=== PATIENT | female | born 1945 | race Asian ===

== ENCOUNTER 2016-07-29 09:45 | Emergency (ER) | payer MEDICARE, MEDICAID ==
[~2016-07-29] VITALS: Ht 154.9 cm; Wt 58.4 kg
[~2016-07-29 09:45] MED LIST: ALBU8.5H3 INH; AMIO200T2 PO; AMLO2.5T78 PO; ATOR20TA38 PO; AZIT250T94 PO; CALC-134 PO; D-ME118S6 PO; DABI75CA2 PO; IBUP400T22 PO; ISOS30TA5 PO; METO-448 PO; MULT-761 PO; NIT4 SL; OMEG100011 PO; OSLT75C PO; PANT20TA3 PO; VITAMIN C; [UNRECOGNIZED DRUG - OTHER]
[2016-07-29 09:48] VITALS: Ht 154.9 cm; Wt 58.4 kg
[2016-07-29 11:03] LABS: URINE BLOOD (Dip) POC 3+ (NEGATIVE)
[2016-07-29] MEDS ORDERED: CEPHALEXIN 500 MG CAP PO ONE (11:16)
[2016-07-29] MEDS ORDERED: PHENAZOPYRIDINE 100 MG TAB PO ONE (11:16)
--- NOTE | 2016-07-29 11:53 | RADRPT ---
PROCEDURE: XR Chest. CLINICAL INDICATION: Cough. TECHNIQUE: Single frontal chest x-ray. COMPARISON: Chest radiograph 07/06/2015. FINDINGS: A left pacemaker is in place with leads overlie the right atrium and right ventricle. Left basilar atelectasis is again noted. The cardiomediastinal silhouette is unremarkable. No pneumothorax, pleural effusion or consolidation is seen. No acute osseous abnormality is noted. IMPRESSION: 1. Left basilar atelectasis. 2. Otherwise no acute cardiopulmonary abnormality. 3. Left-sided pacemaker. RPTAT: HH .Lola Seals MD, Date Time Electronically viewed and signed by .Lola Seals MD, on 07/29/2016 11:52 .N/
[2016-07-29] MEDS ORDERED: PHEN-538 PO (11:57)
[2016-07-29] MEDS ORDERED: CEPH-443 PO (11:57)
[2016-07-29] MEDS ORDERED: D-ME473S18 PO (11:57)
--- NOTE | 2016-07-29 11:59 | ERD ---
ER Documentation Chief Complaint Date/Time DATE: 07/29/16 TIME: 11:58 Chief Complaint cough x 3 weeks. dysuria HPI 71-year-old female presents with a cough for last 3 weeks. Is minimally productive. She denies any fevers measured. She denies any vomiting, abdominal pain, chest pain. She has additional complaint of some dysuria the slight amount of blood over the last week. She denies any flank pain or abdominal pain. ROS All systems reviewed and are negative except as per history of present illness. Medications Home Meds Active Scripts Dextromethorphan Hb-Promethazine Hcl (Promethazine DM Syrup) 473 Ml Syrup, 5 ML PO Q6H Y for COUGH, #4 OZ Prov:GENARO GARRETT MD 07/29/16 Phenazopyridine Hcl* (Pyridium*) 200 Mg Tab, 200 MG PO TID Y for URINARY PAIN, # 6 TAB Prov:GENARO GARRETT MD 07/29/16 Cephalexin* (Keflex*) 500 Mg Capsule, 500 MG PO QID for 5 Days, CAP Prov:GENARO GARRETT MD 07/29/16 Oseltamivir Phosphate* (Tamiflu*) 75 Mg Capsule, 75 MG PO BID for 5 Days, CAP Prov:GENARO GARRETT MD 07/06/15 Dextromethorphan Hb-Promethazine Hcl (Promethazine DM Syrup) 180 Ml Syrup, 5 ML PO Q6H Y for COUGH, #4 OZ Prov:GENARO GARRETT MD 07/06/15 Azithromycin* (Zithromax*) 250 Mg Tablet, 250 MG PO .AshutoshPACK DIRECTED, #6 TAB TAKE 500 MG (2 TABS) THE FIRST DAY THEN 250 MG (1 TAB) DAYS 2-5 Prov:GENARO GARRETT MD 07/06/15 Ibuprofen* (Motrin*) 400 Mg Tab, 400 MG PO Q6, #14 TAB Prov:GENARO GARRETT MD 07/06/15 Reported Medications Nitroglycerin* (Nitrostat*) 0.4 Mg Tab.subl, 0.4 MG SL Q5MIN Y for CHEST PAIN, BOTTLE 10/25/14 Calcium Carbonate/Vitamin D3 (Calcium + Vitamin D Tablet) 1 Tab Tablet, 1 TAB PO 10/25/14 Multivitamin (MULTI VITAMIN DAILY) 1 Each Tablet, 1 TAB PO DAILY, TAB 10/25/14 [place]-3 Fatty Acids/Fish Oil* (Fish Oil *) 1,000 Mg Capsule, 1200 MG PO DAILY, CAP 10/25/14 [Enery B12] No Conflict Check 10/25/14 [Vitamin C] No Conflict Check, 2 10/25/14 Albuterol Sulfate* (Proair HFA*) 8.5 Gm Hfa.aer.ad, 2 PUFF INH Q4H Y for WHEEZING AND SOB, INH 10/25/14 Amiodarone Hcl* (Amiodarone Hcl*) 200 Mg Tablet, 200 MG PO DAILY, TAB 10/25/14 Amlodipine Besylate* (Amlodipine Besylate*) 2.5 Mg Tablet, 2.5 MG PO DAILY, TAB 10/25/14 Pantoprazole* (Pantoprazole*) 20 Mg Tablet.dr, 40 MG PO DAILY, TAB 04/19/14 Dabigatran Etexilate Mesylate* (Pradaxa*) 75 Mg Cap, 150 MG PO BID, CAP 04/19/14 Metoprolol Tartrate* (Lopressor*) 25 Mg Tab, 25 MG PO BID, TAB 09/11/13 Atorvastatin Calcium* (Atorvastatin Calcium*) 20 Mg Tablet, 10 MG PO HS, TAB 09/11/13 Isosorbide Mononitrate* (Isosorbide Mononitrate*) 30 Mg Tab.er.24h, 30 MG PO DAILY, TAB 09/11/13 Allergies Allergies: Coded Allergies: No Known Drug Allergies (Verified Allergy, Mild, 07/29/16) PMhx/Soc History of Surgery: No Anesthesia Reaction: No Hx Neurological Disorder: No Hx Respiratory Disorders: No Hx Cardiac Disorders: No Hx Psychiatric Problems: No Hx Miscellaneous Medical Probl: No Hx Alcohol Use: No Hx Substance Use: No Hx Tobacco Use: No Smoking Status: Never smoker Physical Exam Vitals Vital Signs Date Time Temp Pulse Resp B/P Pulse Ox O2 Delivery O2 Flow Rate FiO2 07/29/16 09:48 98.1 72 18 158/77 99 Physical Exam Const: [] Alert, [id number], speak complete sentences Head: Atraumatic Eyes: Normal Conjunctiva ENT: Normal External Ears, Nose and Mouth. Neck: Full range of motion..~ No meningismus. Resp: Clear to auscultation bilaterally. No rales or wheezing appreciated Cardio: Regular rate and rhythm, no murmurs Abd: Soft, non tender, non distended. Normal bowel sounds Skin: No petechiae or rashes Back: No midline or flank tenderness Ext: No cyanosis, or edema Neur: Awake and alert Psych: Normal Mood and Affect Results 24 hrs Laboratory Tests Test 07/29/16 11:04 Bedside Urine pH (LAB) 6.0 Bedside Urine Protein (LAB) 2+ Bedside Urine Glucose (UA) Negative Bedside Urine Ketones (LAB) Negative Bedside Urine Blood 3+ Bedside Urine Nitrite (LAB) Negative Bedside Urine Leukocyte Esterase (L 3+ Current Medications Medications (Trade) Dose Ordered Sig/Flavia Route PRN Reason Start Time Stop Time Status Last Admin Dose Admin Cephalexin (Keflex) 500 mg ONCE ONCE PO 07/29/16 11:16 07/29/16 11:17 DC 07/29/16 11:26 Phenazopyridine HCl (Pyridium) 200 mg ONCE ONCE PO 07/29/16 11:16 07/29/16 11:17 DC 07/29/16 11:26 Procedures/MDM Urine shows leukocytes and hemoglobin. There is no nitrites or glucose. Chest X-ray 1V Interpreted by me: Soft Tissue: No acute abnormalities Bones: No acute abnormalities Mediastinum/Cardiac Silhouette/Lungs: [No acute abnormalities]. Impression- normal 1 view chest x-ray with pacemaker in place. Patient was given Keflex 500 mg by mouth and Pyridium 200 mg by mouth. Patient signs and symptoms of a URI in addition to signs of UTI. She will treated with Keflex and further observation at home. She will also be given Pyridium and Promethazine DM. The patient was stable with no new complaints during the ER course. Clinically, there is no current evidence to suggest meningitis, sepsis, acute abdomen, pneumonia, acute coronary syndrome, pulmonary embolism, or any other emergent condition appearing to require further evaluation or hospitalization. The patient should certainly return for any new or worsening symptoms per the aftercare instructions. They should otherwise follow-up with her primary care doctor for reevaluation this week. Departure Diagnosis: Primary Impression: UTI (urinary tract infection) Urinary tract infection type: acute cystitis Hematuria presence: without hematuria Qualified Code: N30.00 - Acute cystitis without hematuria Additional Impression: Cough Condition: Stable Patient Instructions: Acute Bronchitis, Understanding Urinary Tract Infections (UTIs) Additional Instructions: Urine shows infection today and we will treat for the. X-ray shows no abnormalities. Recheck for new or worsening symptoms with primary care doctor. GENARO GARRETT MD Jul 29, 2016 11:59
[2016-07-29 12:20] VITALS: BP 140/64; PULSE 63; RESP 18; TEMP 99
== END 2016-07-29 12:09 | disposition home or self-care (01) ==
LOC: FTE 09:45
DX: N30.00 Acute cystitis without hematuria (principal); Z79.01 Long term (current) use of anticoagulants
CPT/HCPCS: 71010; 81003

== ENCOUNTER 2016-09-12 14:18 | Emergency (ER) | payer MEDICARE, OTHER ==
[~2016-09-12] VITALS: Ht 152.4 cm; Wt 59.0 kg
[~2016-09-12 14:18] MED LIST changes: +CEPH-443 PO; +D-ME473S18 PO; +PHEN-538 PO
[2016-09-12 14:19] VITALS: Ht 152.4 cm; Wt 59.0 kg
--- NOTE | 2016-09-12 15:55 | ERD ---
ER Documentation Chief Complaint Date/Time DATE: 09/12/16 TIME: 15:53 Chief Complaint pt bib family cough x 2 wks, HPI Patient is a 71-year-old female with a past medical history of hypertension and pacemaker who presents to the ED with a dry cough for the last 2 weeks. She also complains of congestion and sore throat. Denies fever or chills. Denies sick contacts. Denies abdominal pain, nausea, vomiting or diarrhea. She has tried [id number] medications such as NyQuil, DayQuil and took 1 dose of Keflex that she had at home. Denies hemoptysis or night sweats. She states that this minimally helped with her symptoms. Denies leg pain or leg swelling. Denies chest pain, shortness of breath or difficulty breathing. Denies recent travel or recent surgeries. Denies headache, dizziness. Denies blurry vision. ROS All systems reviewed and are negative except as per history of present illness. Medications Home Meds Active Scripts Benzonatate* (Tessalon Perle*) 100 Mg Capsule, 100 MG PO Q8H Y for COUGH for 14 Days, CAP Prov:HARDIK CAMARGO PA-C 09/12/16 Azithromycin* (Zithromax*) 500 Mg Tablet, 500 MG PO DAILY for 3 Days, TAB Prov:HARDIK CAMARGO PA-C 09/12/16 Dextromethorphan Hb-Promethazine Hcl (Promethazine DM Syrup) 473 Ml Syrup, 5 ML PO Q6H Y for COUGH, #4 OZ Prov:GENARO GARRETT MD 07/29/16 Phenazopyridine Hcl* (Pyridium*) 200 Mg Tab, 200 MG PO TID Y for URINARY PAIN, # 6 TAB Prov:GENARO GARRETT MD 07/29/16 Cephalexin* (Keflex*) 500 Mg Capsule, 500 MG PO QID for 5 Days, CAP Prov:GENARO GARRETT MD 07/29/16 Oseltamivir Phosphate* (Tamiflu*) 75 Mg Capsule, 75 MG PO BID for 5 Days, CAP Prov:GENARO GARRETT MD 07/06/15 Dextromethorphan Hb-Promethazine Hcl (Promethazine DM Syrup) 180 Ml Syrup, 5 ML PO Q6H Y for COUGH, #4 OZ Prov:GENARO GARRETT MD 07/06/15 Azithromycin* (Zithromax*) 250 Mg Tablet, 250 MG PO .AshutoshPAISABELLA DIRECTED, #6 TAB TAKE 500 MG (2 TABS) THE FIRST DAY THEN 250 MG (1 TAB) DAYS 2-5 Prov:GENARO GARRETT MD 07/06/15 Ibuprofen* (Motrin*) 400 Mg Tab, 400 MG PO Q6, #14 TAB Prov:GENARO GARRETT MD 07/06/15 Reported Medications Nitroglycerin* (Nitrostat*) 0.4 Mg Tab.subl, 0.4 MG SL Q5MIN Y for CHEST PAIN, BOTTLE 10/25/14 Calcium Carbonate/Vitamin D3 (Calcium + Vitamin D Tablet) 1 Tab Tablet, 1 TAB PO 10/25/14 Multivitamin (MULTI VITAMIN DAILY) 1 Each Tablet, 1 TAB PO DAILY, TAB 10/25/14 [place]-3 Fatty Acids/Fish Oil* (Fish Oil *) 1,000 Mg Capsule, 1200 MG PO DAILY, CAP 10/25/14 [Enery B12] No Conflict Check 10/25/14 [Vitamin C] No Conflict Check, 2 10/25/14 Albuterol Sulfate* (Proair HFA*) 8.5 Gm Hfa.aer.ad, 2 PUFF INH Q4H Y for WHEEZING AND SOB, INH 10/25/14 Amiodarone Hcl* (Amiodarone Hcl*) 200 Mg Tablet, 200 MG PO DAILY, TAB 10/25/14 Amlodipine Besylate* (Amlodipine Besylate*) 2.5 Mg Tablet, 2.5 MG PO DAILY, TAB 10/25/14 Pantoprazole* (Pantoprazole*) 20 Mg Tablet.dr, 40 MG PO DAILY, TAB 04/19/14 Dabigatran Etexilate Mesylate* (Pradaxa*) 75 Mg Cap, 150 MG PO BID, CAP 04/19/14 Metoprolol Tartrate* (Lopressor*) 25 Mg Tab, 25 MG PO BID, TAB 09/11/13 Atorvastatin Calcium* (Atorvastatin Calcium*) 20 Mg Tablet, 10 MG PO HS, TAB 09/11/13 Isosorbide Mononitrate* (Isosorbide Mononitrate*) 30 Mg Tab.er.24h, 30 MG PO DAILY, TAB 09/11/13 Allergies Allergies: Coded Allergies: No Known Drug Allergies (Verified Allergy, Mild, 09/12/16) PMhx/Soc History of Surgery: Yes (pacemaker) Anesthesia Reaction: No Hx Neurological Disorder: No Hx Respiratory Disorders: No Hx Cardiac Disorders: Yes (htn) Hx Psychiatric Problems: No Hx Miscellaneous Medical Probl: No Hx Alcohol Use: No Hx Substance Use: No Hx Tobacco Use: No Smoking Status: Never smoker FmHx Family History: No coronary disease, No diabetes, No other Physical Exam Vitals Vital Signs Date Time Temp Pulse Resp B/P Pulse Ox O2 Delivery O2 Flow Rate FiO2 09/12/16 14:19 97.8 66 20 186/77 98 Physical Exam GENERAL: Well-developed, well-nourished female. Appears in no acute distress. HEAD: Normocephalic, atraumatic. EYES: Pupils are equally reactive bilaterally. EOMs grossly intact. No conjunctival erythema. ENT: Moist mucous membranes. No uvula deviation. No kissing tonsils. No exudates. NECK: Supple. No lymphadenopathy or thyromegaly. No meningismus. negative kernig. negative brudinski. LUNG: Clear to auscultation bilaterally. No rhonchi, wheezing, rales or coarse breath sounds. HEART: Regular rate and rhythm. No murmurs, rubs or gallops. ABDOMEN: No scars, ecchymosis or rashes noted. Soft, nontender, and nondistended. Positive bowel sounds in all four quadrants. No rebound tenderness , no guarding. (-) McBurneys point tenderness. No CVA tenderness. BACK: No midline tenderness. Extremities: Equal pulses bilaterally. No peripheral clubbing, cyanosis or edema. No unilateral leg swelling. Negative Homans sign NEUROLOGIC: Alert and oriented. Moving all four extremities. 5/5 strength in all extremities. Normal speech. Steady gait. SKIN: Normal color. Warm and dry. No rashes or lesions. Capillary refill < 2 seconds Results 24 hrs Current Medications Medications (Trade) Dose Ordered Sig/Flavia Route PRN Reason Start Time Stop Time Status Last Admin Dose Admin Dexamethasone (Decadron) 10 mg ONCE ONCE IM 09/12/16 16:00 09/12/16 16:01 DC 09/12/16 16:56 Procedures/MDM ER COURSE: I kept the patient and/or family informed of laboratory and diagnostic imaging results throughout the emergency room course. IMAGING STUDIES EKG performed, read by DR GARRETT 71bpm, normal sinus rhythm, normal axis, no acute ST segment changes, no T wave inversion. Electronic atrial pacemaker. [place] [id number] Radiology Main Line: [phone] DIAGNOSTIC IMAGING REPORT Patient: JACKY NÚÑEZ : 1945 Age: 71 Sex: F MR #: [id number] DOS: 09/12/16 1545 Ordering MD: HARDIK CAMARGO PA-C Location: [facility] Room/Bed: PROCEDURE: XR Chest. CLINICAL INDICATION: Cough TECHNIQUE: AP Portable chest. COMPARISON: PA chest x-ray 07/29/2016 FINDINGS: The soft tissues and bones are remarkable for left precordial dual lead pacemaker. Bilateral acromioclavicular osteoarthropathy is present. No focal infiltrates, masses or effusions are present. Mild cardiomegaly and vascular calcifications of the thoracic aorta are noted. No focal infiltrates, masses, or effusions are noted. No pneumothorax is present. IMPRESSION: 1. Left precordial dual lead pacemaker 2. No radiographic evidence for acute cardiopulmonary disease or significant interval change from prior chest x-ray 3. Mild cardiomegaly and atherosclerotic vascular disease RPTAT: HD .Radha Steinberg MD, MD Date Time Electronically viewed and signed by .Radha Steinberg MD, MD on 09/12/2016 17: 39 .C/ CC: HARDIK CAMARGO PA-C MEDICATIONS Decadron 10 mg IM. Tolerated well no adverse reaction. MEDICAL DECISION MAKING: This is a 71-year-old female who presents with cough, congestion and sore throat on and off 2 weeks. Vital signs were reviewed. Patient is afebrile. Patient is not hypoxic. Patient is not toxic or ill-appearing. X-ray as read by radiologist is unremarkable. Low suspicion for PE, pneumothorax, ACS, epiglottitis, obstruction, TB, pertussis, meningitis, sepsis. Low suspicion for ACS, PE, AAA, dissection, DVT. Patient will be treated with azithromycin. DISCHARGE: At this time, patient is stable for discharge and outpatient management with no new complaints during the ER course. Patient was sent home with azithromycin, Callum Call. Patient will be discharged home with instructions to recheck for new or worsening symptoms such as fever, nausea, weakness, LOC and to follow up with primary care in the next 1-2 days. Patient was advised to return to the ER for any new or worsening symptoms. Plan was discussed and patient and/ or family understands and agrees. Home instructions were given. Departure Diagnosis: Primary Impression: Cough Condition: Stable HARDIK CAMARGO PA-C September 12, 2016 15:55
[2016-09-12] MEDS ORDERED: DEXAMETHASONE 10 MG/ML 1 ML INJ IM ONE (16:00)
[2016-09-12] MEDS ORDERED: AZIT500T3 PO (17:33)
[2016-09-12] MEDS ORDERED: BENZ100C70 PO (17:33)
--- NOTE | 2016-09-12 17:40 | RADRPT ---
PROCEDURE: XR Chest. CLINICAL INDICATION: Cough TECHNIQUE: AP Portable chest. COMPARISON: PA chest x-ray 07/29/2016 FINDINGS: The soft tissues and bones are remarkable for left precordial dual lead pacemaker. Bilateral acromi oclavicular osteoarthropathy is present. No focal infiltrates, masses or effusions are present. Mi ld cardiomegaly and vascular calcifications of the thoracic aorta are noted. No focal infiltrates, masses, or effusions are noted. No pneumothorax is present. IMPRESSION: 1. Left precordial dual lead pacemaker 2. No radiographic evidence for acute cardiopulmonary disease or significant interval change from p rior chest x-ray 3. Mild cardiomegaly and atherosclerotic vascular disease RPTAT: HDC .Radha Steinberg MD, Date Time Electronically viewed and signed by .Radha Steinberg MD, on 09/12/2016 17:39 .C/
== END 2016-09-12 17:50 | disposition home or self-care (01) ==
LOC: FTE 14:18
DX: R05 Cough (principal); I10 Essential (primary) hypertension; Z95.0 Presence of cardiac pacemaker
CPT/HCPCS: 71010; 93005; 96372; 99284; J1100

== ENCOUNTER 2017-03-29 21:25 | Emergency (ER) | payer MEDICARE, OTHER ==
[~2017-03-29] VITALS: Ht 154.9 cm; Wt 62.0 kg
[~2017-03-29 21:25] MED LIST changes: +AZIT500T3 PO; +BENZ100C70 PO; -NIT4 SL; +NITR0.4T39 SL
[2017-03-29 22:20] VITALS: Ht 154.9 cm; Wt 62.0 kg
--- NOTE | 2017-03-30 00:34 | RADRPT ---
PROCEDURE: Portable chest x-ray. CLINICAL INDICATION: 72-year of age, female. Cough TECHNIQUE: Portable AP view of the chest. COMPARISON: September 12, 2016 and multiple priors FINDINGS: Medical devices: Left subclavian dual lead pacemaker with electrodes over the right atrium and righ t ventricle. Atherosclerosis aorta. Normal heart size. Hazy increased opacity over the left heart border has been stable on multiple prior exams and may re present a prominent fat pad. Lungs are otherwise clear. Negative for pleural effusion or pneumothorax. Multilevel degenerative changes in thoracic spine. Additional comment: None. IMPRESSION: 1. Negative for evidence of an acute chest process. 2. Dual lead pacemaker. RPTAT: HCTS Physician Marisol Date Time Electronically viewed and signed by Shandra Wade Physician on 03/30/2017 00:33 CS/
[2017-03-30] MEDS ORDERED: D-ME473S2 PO (00:37)
--- NOTE | 2017-03-30 01:12 | ERD ---
ER Documentation Chief Complaint Chief Complaint BIB SELF, CC: COUGH X 3 DAYS, AND FEVER (JAMAL TIPTON PA-C) HPI 72 yr old female complaining of cough and fever x 3 days. No medication today. Mild sore throat. No neck stiffness. Vomiting. Positive nasal congestion. Patient states she had tactile fevers but did not check with a thermometer. Denies sick contacts. Medical history is hypertension with pacemaker. NKDA. Surgical history pacemaker and angiogram. (JAMAL TIPTON PA-C) ROS All systems reviewed and are negative except as per history of present illness. (JAMAL TIPTON PA-C) Medications Home Meds Active Scripts Dextromethorphan Hb-Promethazine Hcl* (Promethazine DM* Syrup) 473 Ml Syrup, 5 ML PO Q6 Y for COUGH, #100 ML Prov:JAMAL TIPTON PA-C 03/30/17 Benzonatate* (Tessalon Perle*) 100 Mg Capsule, 100 MG PO Q8H Y for COUGH for 14 Days, CAP Prov:HARDIK CAMARGO PA-C 09/12/16 Azithromycin* (Zithromax*) 500 Mg Tablet, 500 MG PO DAILY for 3 Days, TAB Prov:HARDIK CAMARGO PA-C 09/12/16 Dextromethorphan Hb-Promethazine Hcl (Promethazine DM Syrup) 473 Ml Syrup, 5 ML PO Q6H Y for COUGH, #4 OZ Prov:GENARO GARRETT MD 07/29/16 Phenazopyridine Hcl* (Pyridium*) 200 Mg Tab, 200 MG PO TID Y for URINARY PAIN, # 6 TAB Prov:GENARO GARRETT MD 07/29/16 Cephalexin* (Keflex*) 500 Mg Capsule, 500 MG PO QID for 5 Days, CAP Prov:GENARO GARRETT MD 07/29/16 Oseltamivir Phosphate* (Tamiflu*) 75 Mg Capsule, 75 MG PO BID for 5 Days, CAP Prov:GENARO GARRETT MD 07/06/15 Dextromethorphan Hb-Promethazine Hcl (Promethazine DM Syrup) 180 Ml Syrup, 5 ML PO Q6H Y for COUGH, #4 OZ Prov:GENARO GARRETT MD 07/06/15 Azithromycin* (Zithromax*) 250 Mg Tablet, 250 MG PO .LUIS DIRECTED, #6 TAB TAKE 500 MG (2 TABS) THE FIRST DAY THEN 250 MG (1 TAB) DAYS 2-5 Prov:GENARO GARRETT MD 07/06/15 Ibuprofen* (Motrin*) 400 Mg Tab, 400 MG PO Q6, #14 TAB Prov:GENARO GARRETT MD 07/06/15 Reported Medications Nitroglycerin* (Nitrostat*) 0.4 Mg Tab.subl, 0.4 MG SL Q5MIN Y for CHEST PAIN, BOTTLE 10/25/14 Calcium Carbonate/Vitamin D3 (Calcium + Vitamin D Tablet) 1 Tab Tablet, 1 TAB PO 10/25/14 Multivitamin (MULTI VITAMIN DAILY) 1 Each Tablet, 1 TAB PO DAILY, TAB 10/25/14 [place]-3 Fatty Acids/Fish Oil* (Fish Oil *) 1,000 Mg Capsule, 1200 MG PO DAILY, CAP 10/25/14 [Enery B12] No Conflict Check 10/25/14 [Vitamin C] No Conflict Check, 2 10/25/14 Albuterol Sulfate* (Proair HFA*) 8.5 Gm Hfa.aer.ad, 2 PUFF INH Q4H Y for WHEEZING AND SOB, INH 10/25/14 Amiodarone Hcl* (Amiodarone Hcl*) 200 Mg Tablet, 200 MG PO DAILY, TAB 10/25/14 Amlodipine Besylate* (Amlodipine Besylate*) 2.5 Mg Tablet, 2.5 MG PO DAILY, TAB 10/25/14 Pantoprazole* (Pantoprazole*) 20 Mg Tablet.dr, 40 MG PO DAILY, TAB 04/19/14 Dabigatran Etexilate Mesylate* (Pradaxa*) 75 Mg Cap, 150 MG PO BID, CAP 04/19/14 Metoprolol Tartrate* (Lopressor*) 25 Mg Tab, 25 MG PO BID, TAB 09/11/13 Atorvastatin Calcium* (Atorvastatin Calcium*) 20 Mg Tablet, 10 MG PO HS, TAB 09/11/13 Isosorbide Mononitrate* (Isosorbide Mononitrate*) 30 Mg Tab.er.24h, 30 MG PO DAILY, TAB 09/11/13 Allergies Allergies: Coded Allergies: No Known Drug Allergies (Verified Allergy, Mild, 03/29/17) PMhx/Soc History of Surgery: Yes (pacemaker) Anesthesia Reaction: No Hx Neurological Disorder: No Hx Respiratory Disorders: No Hx Cardiac Disorders: Yes (htn) Hx Psychiatric Problems: No Hx Miscellaneous Medical Probl: No Hx Alcohol Use: No Hx Substance Use: No Hx Tobacco Use: No Smoking Status: Never smoker (JAMAL TIPTON PA-C) Physical Exam Vitals Vital Signs Date Time Temp Pulse Resp B/P Pulse Ox O2 Delivery O2 Flow Rate FiO2 03/29/17 22:20 98.6 80 18 135/82 100 (RADHA OLMOS DO) Physical Exam GENERAL: The patient is well-appearing, well-nourished, in no acute distress HEENT: Atraumatic. Conjunctivae are pink. Pupils equal, round, and reactive to light. There is no scleral icterus. Tympanic membranes clear bilaterally. Oropharynx clear. No nystagmus or photophobia. NECK: C-spine is soft and supple. There is no meningismus. There is no cervical lymphadenopathy. CHEST: Clear to auscultation bilaterally. There are no rales, wheezes or rhonchi. HEART: Regular rate and rhythm. No murmurs, clicks, rubs or gallops. No S3 or S4. (JAMAL TIPTON PA-C) Procedures/MDM DIAGNOSTIC IMAGING REPORT Patient: JACKY NÚÑEZ : 1945 Age: 72 Sex: F MR #: [id number] DOS: 03/29/17 2309 Ordering MD: BHARGAVI TIPTON PA-C Location: [facility] Room/Bed: PROCEDURE: Portable chest x-ray. CLINICAL INDICATION: 72-year of age, female. Cough TECHNIQUE: Portable AP view of the chest. COMPARISON: September 12, 2016 and multiple priors FINDINGS: Medical devices: Left subclavian dual lead pacemaker with electrodes over the right atrium and right ventricle. Atherosclerosis aorta. Normal heart size. Hazy increased opacity over the left heart border has been stable on multiple prior exams and may represent a prominent fat pad. Lungs are otherwise clear. Negative for pleural effusion or pneumothorax. Multilevel degenerative changes in thoracic spine. Additional comment: None. IMPRESSION: 1. Negative for evidence of an acute chest process. 2. Dual lead pacemaker. MDM: I have low suspicion for PNA. I have low suspicion for respiratory distress or hypoxia. I have low suspicion for bacterial HENT infection. Patients symptoms are likely associated with viral cough. I have low suspicion for respiratory distress or hypoxia. Patient is discharged with strict ER precautions and supportive medications. All questions answered at discharge. (JAMAL TIPTON PA-C) I agree with the workup, documentation and disposition of this patient. In spite of her slightly advanced age she appears well enough for outpatient management. (RADHA OLMOS DO) Departure Diagnosis: Primary Impression: Cough Condition: Stable Patient Instructions: Cough, Chronic, Uncertain Cause, (Adult) Referrals: LITA ARELLANO (PCP) Additional Instructions: FOLLOW UP WITH YOUR PRIMARY CARE PHYSICIAN TOMORROW.Return to this facility if you are not improving as expected. JAMAL TIPTON PA-C Mar 30, 2017 01:12 RADHA OLMOS DO Mar 30, 2017 21:15
== END 2017-03-30 01:33 | disposition home or self-care (01) ==
LOC: FTE 21:25
DX: R05 Cough (principal); I10 Essential (primary) hypertension; Z95.0 Presence of cardiac pacemaker
CPT/HCPCS: 71010